=== PATIENT | male | born 1950 | race Caucasian/White ===

== ENCOUNTER 2018-09-11 17:18 | Emergency (ER) | payer MEDICARE, BC ==
[~2018-09-11] VITALS: Ht 190.5 cm; Wt 109.8 kg
[2018-09-11 17:21] VITALS: BP 130/80
[2018-09-11] MEDS ORDERED: METOPROLOL SUCC25 MG ORAL (17:29)
[2018-09-11] MEDS ORDERED: LEVOTHYROXINE125 MCG ORAL (17:29)
[2018-09-11] MEDS ORDERED: ASPIRIN81 MG ORAL (17:29)
--- NOTE | 2018-09-11 17:36 | Emergency Room Report ---
History of Present Illness General Chief Complaint: Animal Bite Source: Patient Present Illness HPI Patient presents with complaints of dog bite to the left hand more specifically the left thumb Patient was his dog from a pit bull When the incident happened This occurred about 30 minutes prior to arrival Denies any other trauma to the elbow or more proximally denies any chest pain or shortness of breath Denies any focal weakness Denies any active bleeding Allergies: Coded Allergies: No Known Allergies (Unverified , 09/11/18) Patient History Past Medical History: see triage record Pertinent Family History: none Reviewed Nursing Documentation: PMH: Agreed; PSxH: Agreed Nursing Documentation-PMH Past Medical History: No History, Except For Hx Cardiac Problems: Yes - 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 Review of Systems All Other Systems: negative except mentioned in HPI Physical Exam Vital Signs Date Time Temp Pulse Resp B/P (MAP) Pulse Ox O2 Delivery O2 Flow Rate FiO2 09/11/18 17:21 98.1 106 18 130/80 98 Room Air Sp02 EP Interpretation: reviewed, normal General Appearance: well appearing, no apparent distress Head: normocephalic, atraumatic Eyes: bilateral eye PERRL, bilateral eye EOMI ENT: normal pharynx Neck: supple Respiratory: lungs clear Cardiovascular #1: regular rate, rhythm Gastrointestinal: non tender, soft Musculoskeletal: other - Laceration involving the palmar aspect of the left thumb, Approximately 1 cm,Otherwise appropriate flexion and Extension of the thumb Neurologic: alert, oriented x3 Skin: other - As above Lymphatic: no adenopathy Procedures Laceration/Wound Repair Laceration/Wound Repair : Consent: Verbal Wound Location: upper extremity Wound's Depth, Shape: into muscle Wound Length (cm): 1 Wound Explored: contaminated Irrigated w/ Saline (ccs): 300 Betadine Prep?: Yes Anesthesia: 1% Lidocaine Volume Anesthetic (ccs): 3 Wound Debrided: moderate Wound Repaired With: sutures Suture Size/Type: 5:0 Number of Sutures: 6 Layer Closure?: No Sterile Dressing Applied?: Yes Patient Tolerated: Well Complications: None Progress After digital sedation at the base of the thumb, patient had high pressure washout with saline, there appears to be two separate areas, the second one is approximately 0.25 cm, however does bring to the skin, the original is approximately 1 cm, total of 6 sutures were placed for appropriate approximation Medical Decision Making Diagnostic Impression: Primary Impression: Bite by animal Additional Impression: Laceration ER Course Patient had laceration repair as noted above Antibiotic provided Patient reports that he is already up-to-date with immunizations At this time will have close outpatient follow-up Last Vital Signs Date Time Temp Pulse Resp B/P (MAP) Pulse Ox O2 Delivery O2 Flow Rate FiO2 09/11/18 17:21 98.1 106 18 130/80 98 Room Air Status: improved Disposition: HOME, SELF-CARE Condition: Improved Scripts Amoxicillin/Potassium Clav 875-125* (AUGMENTIN 875-125 TABLET*) 1 Each Tablet 1 TAB ORAL TWICE A DAY, #14 TAB Prov: Keke Escobedo DO 09/11/18 Additional Instructions: Patient is provided with the discharge instructions notified to follow up with primary doctor in the next 2-3 days otherwise return to the er with any worsening symptoms. Please note that this report is being documented using [email or web address] technology. This can lead to erroneous entry secondary to incorrect interpretation by the dictating instrument. Keke Escobedo DO Sep 11, 2018 17:36
[2018-09-11] MEDS ORDERED: Tetanus/Diptheria/Pertussis Vaccine 0.5ml Syr IM ONE (17:45)
[2018-09-11] MEDS ORDERED: Lidocaine 1% Plain 30 ml INJ ONE (17:45)
[2018-09-11] MEDS ORDERED: Augmentin 875mg Tab ORAL ONE (17:45)
[2018-09-11] MEDS ORDERED: AUGMENTIN 875-1 EAC1 ORAL (18:20)
[2018-09-11] MEDS ORDERED: Bacitracin Oint UD TOPIC ONE ×2 (18:23→18:30)
[2018-09-11 18:36] VITALS: BP 128/75
== END 2018-09-11 18:36 | disposition home or self-care (01) ==
LOC: EMR 18:21
DX: S61.412A Laceration without foreign body of left hand, initial encounter (principal); W54.0XXA Bitten by dog, initial encounter; Y92.9 Unspecified place or not applicable; Z23 Encounter for immunization
CPT/HCPCS: 12001; 99283; J2001; 90471; 90715